=== PATIENT | male | born 1980 | race Caucasian/White ===

== ENCOUNTER 2022-11-23 07:30 | Emergency (ER) | payer SELFPAY ==
[~2022-11-23] VITALS: Ht 175.3 cm; Wt 81.8 kg
[2022-11-23 07:30] VITALS: BP 135/84
== END 2022-11-23 08:43 | disposition left against medical advice (07) ==
LOC: ER 07:30 → EDBD 07:30 → ER 08:43
DX: T50.7X1A Poisoning by analeptics and opioid receptor antagonists, accidental (unintentional), initial encounter (principal); Z53.21 Procedure and treatment not carried out due to patient leaving prior to being seen by health care provider; Y92.89 Other specified places as the place of occurrence of the external cause